=== PATIENT | male | born 1990 | race Two or more races ===

== ENCOUNTER 2018-06-29 05:42 | Day surgery (SDC) | payer OTHER ==
[2018-06-23 12:50] VITALS: BMI 24.3
[2018-06-29] MEDS ORDERED: ROPIVACAINE HCL 0.5% 30ML VIAL ONE ×2 (07:19→07:25)
[2018-06-29] MEDS ORDERED: DEXAMETHASONE SOD PHOSPHATE/PF 10 MG/ML SDV ONE ×2 (07:19→07:25)
[2018-06-29] MEDS ORDERED: MIDAZOLAM HCL 2 MG/2 ML SINGLE DOSE VIAL ONE ×4 (07:21→07:28)
[2018-06-29] MEDS ORDERED: DESFLURANE GAS 240 ML BOTTLE IH ONE (07:25)
[2018-06-29] MEDS ORDERED: LIDOCAINE HCL/PF 2% SDV 5ML VIAL ONE (07:28)
[2018-06-29] MEDS ORDERED: PROPOFOL 20 ML ONE ×4 (07:28)
[2018-06-29] MEDS ORDERED: SUCCINYLCHOLINE CHLORIDE 200 MG/10 ML VIAL ONE (07:30)
--- NOTE | 2018-06-29 08:10 | HP ---
[facility]ellite [facility] - Chief Complaint Chief Complaint: right knee pain/instability - Past Medical History Allergies/Adverse Reactions: Allergies Allergy/AdvReac Type Severity Reaction Status Date / Time No Known Allergies Allergy Verified 06/29/18 06:24 - Current Medications Current Medications: Home Medications Medication Instructions Recorded Oxycodone HCl/Acetaminophen 1 - 2 tab PO Q6H #30 tab MDD 6 06/29/18 [Percocet 5-325 mg Tablet] Satellite Physical Exam - Physical Examination Vital Signs: Vital Signs Period Temp Pulse Resp BP Sys/Mistry Pulse Ox Last 24 Hr 98.1 F 61 16 135/86 98 General Appearance: Well Nourished, Well Developed, Alert & Oriented x3 ENT: Clear Lung: Normal air movement Heart: Regular rate & rhythm Extremities: Other (right knee- + swelling, + ttp, decr rom, + suzette, + ant draw, nvi MRI + acl rupture) Neurological: Intact, Alert, Oriented Satellite Impression/Plan - Impression/Plan Impression: right knee acl rupture Operative Procedure: right knee arthroscopy with ACL reconstruction using BTB autograft Date to be Performed: 06/29/18
[2018-06-29] MEDS ORDERED: ceFAZolin SODIUM 1 GM VIAL IVPB ONE ×2 (08:29→12:10)
--- NOTE | 2018-06-29 09:40 | OP ---
Operative Note - Note: Operative Date: 06/29/18 ([facility]) Pre-Operative Diagnosis: right knee internal derangement Operation: right knee arthroscopy with ACL reconstruction using btb autograft Post-Operative Diagnosis: Same as Pre-op Surgeon: Erick Jaquez Vp Home Health: Jose Chambers) Anesthesiologist/GLASS MECHANIC: Medardo Kate Anesthesia: Spinal, Local Specimens Removed: shavings Estimated Blood Loss (mls): 5 (tourniquet) Operative Report Dictated: Yes
[2018-06-29] MEDS ORDERED: CEFAZOLIN 1 GM in DEXTROSE 5%-WATER - 50 ML IVPB ONE (10:00)
[2018-06-29] MEDS ORDERED: ONDANSETRON 4 MG/2 ML VIAL IVPUSH PRN (11:06)
[2018-06-29] MEDS ORDERED: oxyCODONE HCL 5 MG TABLET PO PRN ×2 (11:06)
[2018-06-29] MEDS ORDERED: LACTATED RINGERS SOLUTION 1,000 ML IV SCH (11:15)
[2018-06-29] MEDS ORDERED: ceFAZolin SODIUM 1 GM VIAL ONE (12:06)
--- NOTE | 2018-06-29 12:57 | OP ---
DATE OF OPERATION: 06/29/2018 PREOPERATIVE DIAGNOSIS: Right anterior cruciate ligament tear. POSTOPERATIVE DIAGNOSIS: Right anterior cruciate ligament tear. PROCEDURE: Right anterior cruciate ligament reconstruction with bone patellar bone autograft harvesting. SURGICAL ATTENDING: Erick Jaquez MD PBX TEACHER: SERA Mendez, and Jer Park MD ANESTHESIA: Regional and spinal. CLOSURE: Arthrex metallic interference screw fixation for graft, a No. 1 Vicryl for tendon, 2-0 for paratenon and subcutaneous, 3-0 Monocryl subcuticular, skin glue for skin, 3-0 nylon for portal. ESTIMATED BLOOD LOSS: Negligible. TOURNIQUET TIME: Less than an hour. COMPLICATIONS: None. CONDITION: To recovery room in stable condition. DESCRIPTION OF OPERATIVE PROCEDURE: The patient was taken to the operating room on June 29, 2018. Regional and spinal anesthesia was administered by the anesthesiologist. IV Kefzol was administered prophylactically prior to the case. A well-padded pneumatic tourniquet was placed on the right proximal thigh. Preoperative physical examination revealed a 2+ Bobby, 2+ anterior drawer, and 1+ pivot. The right lower extremity was prepped and draped in the usual sterile fashion. The leg was exsanguinated with an Esmarch bandage and the tourniquet was inflated to 275 mmHg. A 6-cm longitudinal incision over the patellar tendon was incised. Hemostasis was achieved with Bovie cautery. Sharp dissection was carried down to the level of the patellar tendon. Sufficient flaps medially and laterally were performed to visualize the entire patellar tendon from mid-patella to tibial tubercle. The 10-mm double blade was used to harvest the central 10 mm of the patellar tendon. Then, 10 x 25 mm plugs were harvested from the patella and from tibial tubercle using a micro-oscillating saw. Drill holes were placed through each plug for passage of No. 1 FiberWire traction sutures. The graft was contoured and fashioned to fit snugly through a 10 mm sizer, and was placed on the back table for later use. The rent in the patellar tendon was closed using 0 Vicryl interrupted suture. At the end of the procedure, Ogemaw putty was placed in the 2 donor sites to fill the void. Next, the arthroscopic portion of the case was performed. A superolateral portal was made using a No. 15 blade followed by a blunt trocar. The medial and lateral infrapatellar portals were then made through the previously-made incision using 15 blade followed by a blunt trocar. The scope was placed in the lateral infrapatellar portal and up into the suprapatellar pouch. The pouch was visualized to be clean. The medial and lateral gutters were visualized to be clean. The undersurface of the patella and trochlea were visualized to be intact. With valgus stress on the knee, the medial compartment was entered. The medial meniscus was visualized and probed, and found to be intact. The medial femoral condyle was run and found to be intact, as was the medial tibial plateau. In the figure-four position the lateral compartment was entered. The lateral meniscus was visualized and probed, and found to be intact. The lateral femoral condyle was run and found to be intact, as was the lateral tibial plateau. At 90 degrees, the ACL was visualized to be completely torn with a large stump anteriorly, and this was debrided down to its footprint. Soft tissue in the notch was debrided. A notchplasty was then performed gaining sufficient width and height to perform the procedure. Using the tibial guide with a retro-drill, a 10-mm tunnel of 40 mm in length was drilled from just anterior to the PCL exiting the anterior medial and proximal tibia. All bone fragments around the tunnel were debrided using the shaver. With the knee flexed greater than 90 degrees, close to 120 degrees, a Beath pin was placed through the AM portal, and drilled in the posterior aspect of the notch low on the wall until it exiting the anterolateral distal thigh. This was over-reamed with a 9-mm flat reamer to the appropriate depth with sufficient was clearly seen. All bone fragments were debrided using the shaver. The shuttle suture was placed through the eyelet hole of the Beath pin, pulled up and out of the anterolateral distal thigh, and the other end pulled down through the tibial tunnel, exiting the tibia. The shuttle suture was then used to pull the traction sutures in the graft up into the knee. The femoral plug fit nicely in its tunnel with the patellar tendon portion being more posteriorly. A 9 x 25 mm Arthrex interference screw was placed between the femoral bone plug and the femoral tunnel achieving excellent fixation. The knee was taken through a range of motion and found to cross nicely over the PCL, and no impingement on the notch throughout. With 20 degrees of flexion and posterior drawer being applied, a 9 x 25 mm Arthrex interference screw was placed between the tibial bone plug and the tibial tunnel achieving excellent fixation. The knee was taken through a range of motion and found to go from full extension and full flexion, had a negative Bobby, had a negative anterior and posterior drawer, and a negative pivot shift. Direct visualization of the graft revealed excellent tension in the graft, no impingement on the notch. The knee was irrigated with copious amounts of irrigation. The portals were closed with 2-0 Vicryl. The periosteum over the tibial tunnel was closed as it had been opened in an L position prior to drilling the tunnel, and was closed using 0 Vicryl. The Ogemaw again was used fill the voids in the patellar and tibial tunnels. The paratenon was run with 2-0 Vicryl. Subcutaneous was closed with 2-0 Vicryl and 3-0 Monocryl subcuticular, with skin glue for the skin, and 3-0 nylon suture was used for the superolateral portal, which was pulled at the end of the case. Sterile pressure dressing followed by a knee immobilizer was applied. Patient was awakened from anesthesia and transferred to the recovery room in stable condition. No complications. Estimated blood loss was negligible. Tourniquet time was less than an hour. Mirian [id number]
[2018-06-29 14:20] VITALS: BP 142/67; PULSE 78; TEMP 98.5
--- NOTE | 2018-06-30 17:45 | PATH ---
Surgical Pathology Report Patient Name: TYREE PICKERING Med. Rec. #: [id number] /Age/Gender: 1990 (Age: 28) / M Account: [id number] Location: [facility] SURGICAL Taken: 06/29/2018 Received: 06/29/2018 Reported: 06/30/2018 Physicians: Mirian Guajardo M.D. Specimen(s) Received RIGHT KNEE SHAVINGS Clinical History ACL tear right side Final Diagnosis RIGHT KNEE SHAVINGS: FRAGMENTS OF BONE, SYNOVIAL TISSUE, AND FIBROCARTILAGINOUS TISSUE WITH DEGENERATIVE CHANGE. Electronically Signed Celso Broderick M.D. Gross Description Received in formalin, labeled "right knee shavings," is a 4.3 x 4.0 x 0.7 cm. aggregate of colon-yellow soft tissue fragments. A advertising sales representative portion is submitted in one cassette. 06/29/2018 no saudi06/29/2018
== END 2018-06-29 13:50 | disposition home or self-care (01) ==
LOC: JASU-SURG 05:42
PROVIDERS: ATTEND Orthopaedic Surgery
PROC: 0QBD0ZZ Excision of Right Patella, Open Approach (ICD-10-PCS; 2018-06-29)
PROC: 0QUD07Z Supplement Right Patella with Autologous Tissue Substitute, Open Approach (ICD-10-PCS; 2018-06-29)
PROC: 0MSN4ZZ Reposition Right Knee Bursa and Ligament, Percutaneous Endoscopic Approach (ICD-10-PCS; principal; 2018-06-29 08:00)
DX: S83.511A Sprain of anterior cruciate ligament of right knee, initial encounter (principal); X58.XXXA Exposure to other specified factors, initial encounter; Y93.9 Activity, unspecified; Y92.89 Other specified places as the place of occurrence of the external cause; Y99.9 Unspecified external cause status
CPT/HCPCS: 88304-TC; 94760